=== PATIENT | male | born 1970 | race Two or more races ===

== ENCOUNTER → 2020-05-11 13:52 | Outpatient (REF) | payer BC, OTHER, SELFPAY | LOC: HO.SL 13:52 | PROVIDERS: PCP Nurse Practitioner Family; Visit Provider Psychiatry & Neurology Neurology | DX: G47.33 Obstructive sleep apnea (adult) (pediatric) (principal) ==

== ENCOUNTER → 2020-06-25 14:02 | Outpatient (BNVA) | payer BC, OTHER, SELFPAY | PROVIDERS: PCP Nurse Practitioner Family; Visit Provider Urology | DX: Z76.89 Persons encountering health services in other specified circumstances (principal) ==

== ENCOUNTER 2020-07-03 11:16 | Outpatient (REF) | payer BC, OTHER, SELFPAY ==
--- NOTE | 2020-07-03 11:22 | XR_ITS ---
EXAMINATION: XR HAND, LEFT CLINICAL INFORMATION: Left hand/thumb pain. COMPARISON: None TECHNIQUE: PA, lateral, and oblique views of the left hand. FINDINGS: The bones and soft tissues are normal. No fracture. Alignment is anatomic. Joint spaces are maintained. No erosions or soft tissue calcifications. XR/XR hand LT min 3V IMPRESSION: Unremarkable left hand. Specifically, the first digit is intact without overt abnormality.
== END 2020-07-03 11:17 | disposition home or self-care (01) ==
LOC: HO.HMGCX 11:16
PROVIDERS: PCP Nurse Practitioner Family; Visit Provider Hospitalist
DX: M79.645 Pain in left finger(s) (principal)
CPT/HCPCS: 73130

== ENCOUNTER 2020-07-06 11:36 | Outpatient (REF) | payer BC, OTHER, SELFPAY ==
[2020-07-11 13:22] LABS: Testosterone, Free 62.8 pg/mL (35.0-155.0); Testosterone, Total 327 ng/dL (250-1100)
== END 2020-07-06 11:37 | disposition home or self-care (01) ==
LOC: HO.HMGCLDS 11:36
PROVIDERS: Hospitalist; PCP Nurse Practitioner Family; Visit Provider Internal Medicine
DX: Z20.828 Contact with and (suspected) exposure to other viral communicable diseases (principal); N52.9 Male erectile dysfunction, unspecified
CPT/HCPCS: 84402; 84403; C9803; U0003

== ENCOUNTER → 2020-12-23 13:38 | Outpatient (BNVA) | payer BC, OTHER, SELFPAY | PROVIDERS: Visit Provider Urology ==

== ENCOUNTER → 2021-06-18 13:27 | Outpatient (BNVA) | payer BC, OTHER, SELFPAY | PROVIDERS: Visit Provider Urology ==

== ENCOUNTER 2022-07-28 07:13 | Outpatient (REF) | payer BC, SELFPAY ==
[2022-07-28 11:54] LABS: PSA,Total (Free>4and<10) 0.88 ng/mL (0.00-4.00)
[2022-08-03 15:13] LABS: Testosterone, Free 46.8 pg/mL (35.0-155.0); Testosterone, Total 312 ng/dL (250-1100)
== END 2022-07-28 07:14 | disposition home or self-care (01) ==
LOC: HO.HMGCLDS 07:13
PROVIDERS: PCP Family Medicine; Visit Provider Urology
DX: Z12.5 Encounter for screening for malignant neoplasm of prostate (principal); E29.1 Testicular hypofunction
CPT/HCPCS: 36415; 84153; 84402; 84403

== ENCOUNTER → 2022-08-02 09:16 | Outpatient (BNVA) | payer BC, SELFPAY | PROVIDERS: PCP Family Medicine; Visit Provider Urology | DX: N52.9 Male erectile dysfunction, unspecified (principal) ==

== ENCOUNTER 2023-10-17 09:12 | Outpatient (REF) | payer BC, SELFPAY ==
[2023-10-17 12:04] LABS: Prostate Specific Antigen 1.17 ng/mL (<0.05-4.0)
== END 2023-10-17 09:13 | disposition home or self-care (01) ==
LOC: HO.HMGCLDS 09:12
PROVIDERS: PCP Family Medicine; Visit Provider Urology
DX: Z12.5 Encounter for screening for malignant neoplasm of prostate (principal)
CPT/HCPCS: 36415; 84153

== ENCOUNTER 2023-11-01 12:51 | Outpatient (AMB) | payer BC, SELFPAY ==
--- NOTE | 2023-11-01 12:52 | A.OFFVIS_ITS ---
Intake Intake Visit Reasons: 1Y PSA(set) Intake Note: Patient presents today for a yearly follow up on PSA Meds- None Allergies to Antibiotic- Penicillins Blood Thinner- None Patient stated his ED issues has been resolved with changes in his life style, however he continues with the deep inguinal pain. Human Resources Operations Director Required: No Accompanied by: Self / Same As Patient Allergies Penicillins [PCN] Allergy (Severe, Verified 11/01/23 12:53) SWELLING ibuprofen Allergy (Unknown, Verified 11/01/23 12:53) joints swell and itch, itchy joints losartan Allergy (Unknown, Verified 11/01/23 12:53) hives naproxen Allergy (Unknown, Verified 11/01/23 12:53) itchy joints penicillin V Allergy (Unknown, Verified 11/01/23 12:53) hives HPI HPI Comments History of Present Illness Details Tristian is a pleasant male. He is seen for the following urologic issues - erectile dysfunction - low testosterone No longer needs low-dose tadalafil for erections Has no longer been taking any replacement for testosterone SIN 1+ normal PSA 10/28 1.2 Check PSA in 6 months Family history of prostate cancer Hypogonadism Prior therapy Labs - 06/26 T 327 F 62, 07/28 PSA 0.9 Erectile dysfunction: Uses low dose PDE as needed He presents today for for continued evaluation and management of erectile dysfunction. Symptoms have been present for/since Ongoing. Current treatment includes Viagra/sildenafil. Prior therapies include oral medications. At this time he experiences erections are partial and adequate for vaginal penetration, that last until ejaculation, GIFTY 17-21 Mild ED. Nocturnal erections do occur. Associated problems hypertension No diabetes No dyslipidemia No depression No stress No decreased libido No pelvic surgery No Recent labs included Penile Doppler perform Peak arterial flow greater 35 Does have some degree of restriction on right side call prior [facility] Medical History Erectile dysfunction Obstructive sleep apnea Other and unspecified hyperlipidemia Essential hypertension Tinnitus Surgical History No pertinent past surgical history Family History Father HTN (hypertension) Mother Renal insufficiency Brother No problems noted. Daughter No problems noted. Social History Alcohol intake: current Alcohol intake frequency: a few times a month Patient Tobacco Use Status: Former Tobacco user Review of Systems Const Denies chills and Denies fever(s) Card Reports no additional complaints and Denies syncope Resp Denies cough GI Denies abdominal pain and Denies heartburn Reports as per HPI and Denies change in libido Neuro Denies syncope Psych Denies change in libido Endo Denies change in libido Physical Exam Const General: cooperative, healthy appearing, comfortable and no acute distress Orientation/consciousness: patient oriented x3 HEENT Face and sinus: Yes normal facial exam Mouth: moist mucous membranes Neck Neck: Yes normal visual inspection, Yes full ROM and Yes trachea midline Chest Chest palpation & inspection: normal inspection of the chest Resp Effort & Inspection: normal respiratory effort, able to speak in complete sentences and no respiratory distress GI Inspection: Yes normal to inspection Back/Spine/Pelvis Cervical Spine: normal cervical lordosis Thoracic/Lumbar Spine: thoracic and lumbar spine normal to inspection Skin General skin exam: no rashes or lesions noted Neuro General: patient oriented x3, gait normal, tone normal and moves all extremities Extrem General: Yes normal to inspection and Yes capillary refill normal Assessment & Plan Assessment & Plan (1) Hypogonadism in male: Code(s): E29.1 - Testicular hypofunction (2) Erectile dysfunction: Comment: Good response to 0.5 mg Cialis Code(s): N52.9 - Male erectile dysfunction, unspecified Plan Twelve month follow-up PSA Orders: Orders Prostate Specific Antigen 364 Days E29.1 - Testicular hypofunction Patient Instructions: Imaging studies, laboratory and physical exam results were discussed and reviewed in detail. No major barriers to patient understanding were identified. An opportunity to ask questions regarding the treatment plan was provided. All questions were answered. The patient expressed understanding and agreement with the above treatment plan. The patient is aware they should contact our office by phone for worsening of their current condition or the appearance of new urologic symptoms. Compliance is encouraged with any medications and followup testing that is ordered. It is a privilege to participate in the urologic care of your patient. If you have any questions or concerns regarding treatment for the above conditions, or other urologic issues, please do not hesitate to contact me. The office telephone contact is [phone]. This note is constructed using voice recognition software. While every effort has been made to ensure accuracy immigration associate errors may have been included. Yours sincerely, Dr Huan Escobedo MD, SA[facility] - Urology Providers of Expert, Compassionate Care for the Genitourinary System Coding Level of Care Code Est Pt Level 4 (93804) Diagnoses Hypogonadism in male E29.1 Erectile dysfunction N52.9
== END 2023-11-01 13:44 | disposition home or self-care (01) ==
PROVIDERS: Visit Provider Urology
DX: E29.1 Testicular hypofunction (principal); N52.9 Male erectile dysfunction, unspecified
CPT/HCPCS: 99213

== ENCOUNTER → 2023-11-01 12:51 | Outpatient (BNVA) | payer BC, SELFPAY | PROVIDERS: Visit Provider Urology ==

== ENCOUNTER 2024-10-04 15:23 | Outpatient (AMB) | payer BC, SELFPAY ==
--- NOTE | 2024-10-04 15:27 | MHC.OFFWIV ---
Intake Vital Signs 10/04/24 15:30 Height 5 ft 10.5 in Weight 199 lb BMI 28.1 BP 124/80 Blood Pressure Location Rt brachial Position Sitting Pulse 72 Pulse Source Pulse Oximeter Pulse Oximetry (%) 98 Oxygen Delivery Method Room Air Intake Visit Reasons: EP Digestive Intake Note: Patient here for mass in rectal that he noticed a couple of days ago. Patient Tobacco Use Status: Former Tobacco user Allergies Penicillins [PCN] Allergy (Severe, Verified 10/04/24 15:33) SWELLING ibuprofen Allergy (Unknown, Verified 10/04/24 15:33) joints swell and itch, itchy joints losartan Allergy (Unknown, Verified 10/04/24 15:33) hives naproxen Allergy (Unknown, Verified 10/04/24 15:33) itchy joints penicillin V Allergy (Unknown, Verified 10/04/24 15:33) hives Do you need a note to return to daycare/school/sports/work: No HPI HPI Comments History of Present Illness Details History of Present Illness - The patient is a 53-year-old male presenting with concerns regarding possible hemorrhoids, which he describes as a small, rubbery lump near the rectum, not associated with pain or bleeding. - No changes in bowel habits or accompanying symptoms like diarrhea or constipation have been noted. - denies weight loss or fevers Physical Exam General: Cooperative, healthy appearing, comfortable, no acute distress and well developed Orientation: Patient oriented x3 Limitations: No limitations Head: Normal to inspection Ears: Hearing grossly normal bilaterally Nose: Normal external nose present Face and sinus: Normal facial exam Eyes: Appearance normal, both eyes and all related structures Neck: Normal visual inspection and Yes full ROM Respiratory: Normal respiratory effort and able to speak in complete sentences. GI: declined exam Skin: No rashes or lesions noted Neuro: Patient oriented x3 Extremities: Normal to inspection [facility] Medical History Erectile dysfunction Obstructive sleep apnea Other and unspecified hyperlipidemia Essential hypertension Tinnitus Surgical History No pertinent past surgical history Family History Father HTN (hypertension) Mother Renal insufficiency Brother No problems noted. Daughter No problems noted. Social History Alcohol intake: current Alcohol intake frequency: a few times a month Patient Tobacco Use Status: Former Tobacco user Physical Exam Vital Signs: Last Vital Signs Pulse 72 10/04/24 15:30 BP 124/80 10/04/24 15:30 Pulse Ox 98 10/04/24 15:30 Oxygen Delivery Method Room Air 10/04/24 15:30 BMI result Body Mass Index 28.1 Assessment & Plan Assessment & Plan (1) Hemorrhoids: Code(s): K64.9 - Unspecified hemorrhoids Qualifiers: Hemorrhoid type: unspecified Qualified Code(s): K64.9 - Unspecified hemorrhoids Plan: The likely diagnosis of hemorrhoids was discussed with the patient, considering the lack of pain, bleeding, or significant bowel habit changes. Recommendations focused on lifestyle modifications to manage and prevent symptoms, including adequate hydration and increased dietary fiber. [id number] treatments like suppositories and witch naomie pads were suggested for symptomatic relief, if he were to develop symptoms. The patient should seek further consultation if there is an onset of more concerning symptoms like bleeding or significant changes in bowel habits, and it may be helpful to review prior colonoscopy findings with his PCP for additional insight. Patient was informed and verbally consented to the use of an ambient scribe for clinic note documentation during this visit. Coding Level of Care Code New Pt Level 3 (25389) Diagnoses Hemorrhoids, unspecified hemorrhoid type K64.9 Hemorrhoid type: unspecified
[2024-10-04 15:30] VITALS: BP 124/80; PULSE 72; O2SAT 98; BMI 28.1
== END 2024-10-04 16:24 | disposition home or self-care (01) ==
PROVIDERS: PCP Family Medicine; Visit Provider Physician Assistant
DX: K64.9 Unspecified hemorrhoids (principal)

== ENCOUNTER 2024-10-24 12:01 | Outpatient (REF) | payer BC, SELFPAY ==
[2024-10-24 13:53] LABS: Prostate Specific Antigen 1.12 ng/mL (<0.05-4.0)
== END 2024-10-24 12:02 | disposition home or self-care (01) ==
LOC: HO.HMGCLDS 12:01
PROVIDERS: PCP Family Medicine; Visit Provider Urology
DX: Z12.5 Encounter for screening for malignant neoplasm of prostate (principal); E29.1 Testicular hypofunction
CPT/HCPCS: 36415; 84153

== ENCOUNTER 2024-11-01 08:17 | Outpatient (AMB) | payer BC, SELFPAY ==
--- NOTE | 2024-11-01 08:20 | A.OFFVIS_ITS ---
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 He is seen for the following urologic issues - erectile dysfunction - low testosterone 6m f/u PSA 0.88 SIN 1+ normal PSA 10/28 1.2 Family history of prostate cancer Follow with PCP Hypogonadism Prior therapy Labs - 06/26 T 327 F 62, 07/28 PSA 0.9 Erectile dysfunction: Uses low dose PDE as needed He presents today for for continued evaluation and management of erectile dysfunction. Symptoms have been present for/since Ongoing. Current treatment includes Viagra/sildenafil. Prior therapies include oral medications. At this time he experiences erections are partial and adequate for vaginal penetration, that last until ejaculation, GIFTY 17-21 Mild ED. Nocturnal erections do occur. Associated problems hypertension No diabetes No dyslipidemia No depression No stress No decreased libido No pelvic surgery No Recent labs included Penile Doppler perform Peak arterial flow greater 35 Does have some degree of restriction on right side call prior [facility] Medical History Erectile dysfunction Obstructive sleep apnea Other and unspecified hyperlipidemia Essential hypertension Tinnitus Surgical History No pertinent past surgical history Family History Father HTN (hypertension) Mother Renal insufficiency Brother No problems noted. Daughter No problems noted. Social History Alcohol intake: current Alcohol intake frequency: a few times a month Patient Tobacco Use Status: Former Tobacco user Review of Systems Const Denies chills and Denies fever(s) Card Reports no additional complaints and Denies syncope Resp Denies cough GI Denies abdominal pain and Denies heartburn Reports as per HPI and Denies change in libido Neuro Denies syncope Psych Denies change in libido Endo Denies change in libido Physical Exam Const General: cooperative, healthy appearing, comfortable and no acute distress Orientation/consciousness: patient oriented x3 HEENT Face and sinus: Yes normal facial exam Mouth: moist mucous membranes Neck Neck: Yes normal visual inspection, Yes full ROM and Yes trachea midline Chest Chest palpation & inspection: normal inspection of the chest Resp Effort & Inspection: normal respiratory effort, able to speak in complete sentences and no respiratory distress GI Inspection: Yes normal to inspection Back/Spine/Pelvis Cervical Spine: normal cervical lordosis Thoracic/Lumbar Spine: thoracic and lumbar spine normal to inspection Skin General skin exam: no rashes or lesions noted Neuro General: patient oriented x3, gait normal, tone normal and moves all extremities Extrem General: Yes normal to inspection and Yes capillary refill normal Assessment & Plan Assessment & Plan (1) Erectile dysfunction: Comment: Good response to 0.5 mg Cialis Code(s): N52.9 - Male erectile dysfunction, unspecified Category: Medical (2) Screening PSA (prostate specific antigen): Code(s): Z12.5 - Encounter for screening for malignant neoplasm of prostate Category: Medical Plan P.r.n. follow-up Patient Instructions: This note is constructed using voice recognition software. While every effort has been made to ensure accuracy faucets assembler errors may have been included. Imaging studies, laboratory and physical exam results were discussed and reviewed in detail. No major barriers to patient understanding were identified. An opportunity to ask questions regarding the treatment plan was provided. All questions were answered. The patient expressed understanding and agreement with the above treatment plan. The patient is aware they should contact our office by phone for worsening of their current condition or the appearance of new urologic symptoms. Compliance is encouraged with any medications and followup testing that is ordered. It is a privilege to participate in the urologic care of your patient. If you have any questions or concerns regarding treatment for the above conditions, or other urologic issues, please do not hesitate to contact me. The office telephone contact is [phone]. Sincerely, Dr Huan Escobedo MD, [facility] - Urology Compassionate Specialist Care for the Genitourinary System Coding Level of Care Code Est Pt Level 4 (80920) Diagnoses Erectile dysfunction N52.9 Screening PSA (prostate specific antigen) Z12.5
== END 2024-11-01 08:51 | disposition home or self-care (01) ==
LOC: HO.HUSH 08:17
PROVIDERS: PCP Family Medicine; Visit Provider Urology
DX: N52.9 Male erectile dysfunction, unspecified (principal); Z12.5 Encounter for screening for malignant neoplasm of prostate
CPT/HCPCS: 99214

== ENCOUNTER → 2024-11-01 08:17 | Outpatient (BNVA) | payer BC, SELFPAY | PROVIDERS: PCP Family Medicine; Visit Provider Urology ==